=== PATIENT | male | born 1995 | race Caucasian/White ===

== ENCOUNTER 2017-11-25 19:09 | Emergency (ER) | payer MEDICAID, OTHER ==
[2017-11-25] MEDS: NORCO 5/325MG TABLET (BULK FOR ED) PO ×2 (22:00)
== END 2017-11-25 22:28 | disposition home or self-care (01) ==
LOC: M ED 19:09
DX: S92.422A Displaced fracture of distal phalanx of left great toe, initial encounter for closed fracture (principal); W22.8XXA Striking against or struck by other objects, initial encounter; Y92.59 Other trade areas as the place of occurrence of the external cause; Y99.0 Civilian activity done for income or pay
CPT/HCPCS: 73630